=== PATIENT | male | born 1975 | race Caucasian/White ===

== ENCOUNTER 2023-01-17 17:17 | Emergency (ER) | payer OTHER, MEDICAID, SELFPAY ==
[2023-01-17 17:17] VITALS: BP 164/90; PULSE 104; RESP 18; TEMP 36.6; O2SAT 99; BMI 35.4
--- NOTE | 2023-01-17 17:26 | EDS_ITS ---
HPI History of Present Illness Chief Complaint: Upper Extremity Injury Detail of Chief Complaint: Trigger finger Informant: patient Narrative Narrative: Patient presents secondary to trigger finger. He states he has had trigger finger in his left fourth digit for some time. It would pop intermittently but over the past 8 days it has been held in the flexed position and has been unable to straighten it. No new injury. He has good sensation and cap refill. [facility] Medical History Hypertension Home Medications hydrocodone-acetaminophen 5-325mg 5mg-325mg 1 tab PO Q6H PRN PRN Pain 3 days #10 TABLETS 01/17/23 [Rx Last Taken Unknown] Allergy/AdvReac Type Severity Reaction Status Date / Time codeine Allergy Hives Verified 01/17/23 17:20 Social History Smoking Status: Unknown if ever smoked ROS ROS ED Constitutional Constitutional ED: Denies chills or fever(s) ENT ENT ED: Denies rhinorrhea Cardiovascular Cardiovascular: Denies chest pain or palpitations Respiratory/Chest Respiratory/Chest: Denies cough or dyspnea Gastrointestinal Gastrointestinal: Denies abdominal pain Musculoskeletal Musculoskeletal: Reports other Details: Left fourth finger held in flexion Integumentary Denies rash Neurologic Neurologic: Denies paresthesias Hematologic/Lymphatic Hematologic/Lymphatic: Denies easy bleeding or easy bruising Allergic/Immunologic Allergic/Immunologic ED: Denies mouth swelling or tongue swelling EXAM Physical Exam Const Vital Signs: 01/17/23 17:17 Temperature 97.8 F Temperature Source Temporal Pulse Rate 104 H Respiratory Rate 18 Blood Pressure 164/90 H Blood Pressure Mean 114 Pulse Ox 99 Oxygen Delivery Method Room Air Positive well nourished and well developed General Appearance ED: well developed HEENT Reports moist mucous membranes Eyes EOMs intact bilaterally Neck supple Chest Wall inspection of chest normal and palpation of chest normal Resp normal respiratory effort and clear to auscultation bilaterally Cardio regular rate and regular rhythm GI non-tender and non-distended Extremity Extremity Narrative: Left fourth finger held in flexion. Good cap refill and sensation distally. No pain over the carpals or metacarpals. Neuro oriented x3 Psych mental status grossly normal MDM MDM MDM Narrative Medical decision making narrative: I spoke with Dr. Chang, on-call for orthopedics shortly to see the patient. He did recommend lidocaine injection. He states that after doing a digital block I could perform a wheel injection over the metacarpal head on the flexor surface. This should help with pain along the flexor tendon. A total of 7 cc of lidocaine was used in both digital block fashion as well as a small wheal over the carpal head on the flexor surface. The DIP joint was easily able to be straightened. The PIP joint did ultimately release and I was able to straighten his finger with a significant mount of pressure. Patient is splinted in an extended position. He will be given Salix to help control pain this weekend as he is having a lot of spasm. He will follow-up with Dr. Chang next week. Discharge Plan Triage Chief Complaint: Upper Extremity Injury ED Provider: Luna Villasenor Dx/Rx/DC Orders Clinical Impression: Trigger finger Instructions: What Is Trigger Finger?, Treating Trigger Finger Prescriptions: New hydrocodone-acetaminophen 5-325 mg tablet 1 tab PO Q6H PRN PRN (Reason: Pain) 3 Days Qty: 10 0RF Primary Care Provider: Care Physician,No Primary Referrals: Zia Chang, DO [Med Staff - Active Staff] - As soon as possible NOT,DEFINED [Non-Staff] - Disposition Disposition: Home, Self Care
[2023-01-17] MEDS: Lidocaine 1% (20 ml mdv) 20 ML Vial INFILT (18:13)
== END 2023-01-17 18:30 | disposition home or self-care (01) ==
PROVIDERS: Emergency Provider Emergency Medicine; Visit Provider Emergency Medicine
DX: M65.342 Trigger finger, left ring finger (principal)
CPT/HCPCS: 99282